=== PATIENT | male | born 1960 | race Caucasian/White ===

== ENCOUNTER 2020-05-28 07:17 | Day surgery (SDC) | payer OTHER, SELFPAY ==
[2020-05-24 16:29] LABS: BASOPHILS % (AUTO) 0.8 % (0.0-2.0); EOSINOPHILS # (AUTO) 0.4 K/uL (0.0-0.4); HEMATOCRIT 40.6 % (36-54); HEMOGLOBIN 13.2 g/dL (14.0-18.0); LYMPHOCYTES # (AUTO) 1.7 K/uL (1.0-5.5); LYMPHOCYTES % (AUTO) 27.7 % (20.5-51.5); MEAN CORPUSCULAR HEMOGLOBIN 29 pg (27-31); MEAN CORPUSCULAR HGB CONC 33 % (32-36); MEAN CORPUSCULAR VOLUME 89 fL (79.0-98.0); MONOCYTES # (AUTO) 0.5 K/uL (0.0-1.0); MONOCYTES % (AUTO) 8.2 % (1.7-9.3); NEUTROPHILS # (AUTO) 3.4 K/uL (1.8-7.7); NEUTROPHILS % (AUTO) 57.3 % (40.0-70.0); PLATELET COUNT (AUTO) 296 K/uL (130-430); RED BLOOD CELL COUNT(AUTO) 4.54 MIL/uL (4.2-6.2)
[2020-05-24 16:49] LABS: ALBUMIN 3.5 g/dL (3.4-4.8); CALCIUM 8.6 mg/dL (8.4-11.0); CREATININE 1.18 mg/dL (0.55-1.30); POTASSIUM 3.7 mmol/L (3.5-5.1); TOTAL BILIRUBIN 0.2 mg/dL (0.0-1.0)
[~2020-05-28] VITALS: Ht 179.1 cm; Wt 86.2 kg
[~2020-05-28 07:17] MED LIST: CEFAZOLIN SOD 2 GM in D5W 50 ML IV ONE
[2020-05-28] MEDS ORDERED: PROPOFOL 200MG/ 20ML VIAL (DIPRIVAN) IV ONE (09:40)
[2020-05-28] MEDS ORDERED: SUGAMMADEX SODIUM 200 MG/2 ML VIAL IV ONE (09:40)
[2020-05-28] MEDS ORDERED: LABETALOL 100 MG/ 20ML VIAL IVP ONE (09:40)
[2020-05-28] MEDS ORDERED: ROCURONIUM BROMIDE 10 MG/ML (ZEMURON) IV ONE (09:40)
[2020-05-28] MEDS ORDERED: KETOROLAC TROMETHAMINE 30 MG VIAL IVP ONE (09:40)
[2020-05-28] MEDS ORDERED: ISOFLURANE 15 MIN GAS INH ONE (09:40)
[2020-05-28] MEDS ORDERED: LR 1,000 ML IV.SOLN IV ONE (09:40)
[2020-05-28] MEDS ORDERED: MORPHINE SULFATE 10MG/10ML PF AMP EP ONE (09:40)
[2020-05-28] MEDS ORDERED: SUCCINYLCHOLINE CHLORIDE 20 MG/ML(QUELICIN) IVP ONE (09:40)
[2020-05-28] MEDS ORDERED: NS IRRIG SOLN 1000 ML IR ONE (09:40)
[2020-05-28] MEDS ORDERED: DEXAMETHASONE SOD PHOSPHATE 4 MG/ML VIAL IVP ONE (09:40)
[2020-05-28] MEDS ORDERED: POLYMYXIN 500,000/BACIT.10,000 UNITS in NS IRR 1 L IR ONE ×2 (09:54→10:24)
[2020-05-28] MEDS ORDERED: HYDROmorphone 1 MG INJ. 1 MG/ML AMPUL IVP PRN (14:45)
[2020-05-28] MEDS ORDERED: ONDANSETRON HCL 4 MG/2 ML VIAL IVP PRN (14:45)
[2020-05-28 15:40] VITALS: BP_SYST 130
== END 2020-05-28 17:40 | disposition home or self-care (01) ==
LOC: SDS 07:17 → SMU 07:23 → SDS 17:40
PROVIDERS: ATTEND Surgery
DX: K40.20 Bilateral inguinal hernia, without obstruction or gangrene, not specified as recurrent (principal); K42.9 Umbilical hernia without obstruction or gangrene; Z98.890 Other specified postprocedural states; Z79.899 Other long term (current) drug therapy; Z11.59 Encounter for screening for other viral diseases
CPT/HCPCS: 36415; 49650; 49652; 71046; 80053; 85025; 88302; C1727; C1781; C9399; J0330; J0690; J1100; J1885; J2274; J2704; J3490; J7060; J7120; S2900; U0003